=== PATIENT | female | born 1940 | race Hispanic/Latino ===

== ENCOUNTER 2020-07-06 14:31 | Outpatient (CLI) | payer MEDICARE ==
--- NOTE | 2020-07-06 15:43 | Mammography Report ---
DIGITAL SCREENING MAMMOGRAM WITH CAD, 07/06/2020 CLINICAL INFORMATION / INDICATION: Routine screening mammography. PERSONAL HX OF BREAST CA TECHNIQUE: Digital right 2D mammography was obtained in the craniocaudal and mediolateral oblique pr ojections. This examination was interpreted with the benefit of Computer-Aided Detection analysis. COMPARISON: None available FINDINGS: Breast Density: There are scattered areas of fibroglandular density. There is a 6 mm nodular density seen in the 9:00 position of the right breast, middle depth. Otherwis e, no dominant mass, suspicious calcifications, or architectural distortion in the right breast. IMPRESSION: 1. A nodular density in the right breast may reflect an intramammary lymph node. However, as no prior s are available for comparison, recommend targeted right breast ultrasound for further evaluation wit h additional views if needed. Follow up recommendation: Ultrasound BI-RADS Category 0: Incomplete. Needs additional imaging evaluation and/or prior mammograms for jazz rison. A "normal" or negative report should not discourage follow up or biopsy of a clinically significant f inding. A written summary of these findings will be mailed to the patient. The patient will be entered into a mammography reporting system which will generate a reminder letter for the patient's next appointmen t at the appropriate interval. The [employer] recommends yearly mammograms starting at age 40 and continuing as l tarah as a woman is in good health. Breast MRI is recommended for women with an approximate 20-25% or greater lifetime risk of breast cancer, including women with a strong family history of breast or ova lenard cancer or who have been treated for Hodgkin's disease. Signer Name: Lena Finn MD Signed: 07/06/2020 3:39 PM Workstation Name: [email or web address]
== END 2020-07-06 14:32 | disposition home or self-care (01) ==
LOC: SPVWC 14:31
PROVIDERS: ATTEND Internal Medicine Hematology & Oncology
DX: Z12.31 Encounter for screening mammogram for malignant neoplasm of breast (principal)

== ENCOUNTER 2020-08-03 12:06 | Outpatient (CLI) | payer MEDICARE ==
--- NOTE | 2020-08-03 13:36 | Ultrasound Report ---
ULTRASOUND BREAST RIGHT LIMITED, 08/03/2020 CLINICAL INFORMATION / INDICATION: PERSONAL HX OF BREAST CA Z85.3. Patient presents as a callback fro m screening mammogram for further evaluation of a nodular density in the right breast. TECHNIQUE: Targeted ultrasound evaluation was performed of the area of interest. COMPARISON: Prior mammogram 07/06/2020 FINDINGS: Corresponding with the nodular density seen on recent mammogram, there is a 6 mm benign simple cyst i n the right breast 9:00 position located 5 cm from the nipple. No suspicious sonographic abnormality identified. IMPRESSION: 1. A benign simple cyst accounts for the mammographic finding. No suspicious sonographic abnormality identified. Follow up recommendation: Routine yearly BI-RADS Category 2: Benign. A normal or "negative" report should not preclude biopsy or follow-up of a clinically suspicious find ing. Signer Name: Lena Finn MD Signed: 08/03/2020 1:25 PM Workstation Name: [email or web address]
== END 2020-08-03 12:07 | disposition home or self-care (01) ==
LOC: SPVWC 12:06
PROVIDERS: ATTEND Internal Medicine Hematology & Oncology
DX: N60.01 Solitary cyst of right breast (principal); Z85.3 Personal history of malignant neoplasm of breast